=== PATIENT | male | born 1955 | race Caucasian/White ===

== ENCOUNTER 2024-02-16 15:02 | Emergency (ER) | payer MEDICARE, SELFPAY ==
[2024-02-16 15:10] VITALS: BP 159/80; PULSE 90; RESP 20; TEMP 36.2; O2SAT 99
[2024-02-16 15:14] LABS: Glucose Point of Care 280 mg/dl (65-105)
--- NOTE | 2024-02-16 15:19 | ED.EXTPRO ---
HPI - Extremity Problem General Chief complaint: Extremity Problem,Nontraumatic Stated complaint: L toes discoloration Time Seen by Provider: 02/16/24 15:13 History of Present Illness HPI Narrative: 68-year-old male history of diabetes, hypertension, dyslipidemia presents to the emergency room for evaluation of pain to his left great and 2nd toes. States pain has been present for 3 days. Denies injury or trauma. States recently it has been eating heavy amounts of meat seafood recently. Has not taken any medications to alleviate his symptoms. States his diabetes is poorly managed and has been experiencing neuropathy in his feet for several months. Related Data Home Medications Medication Instructions Recorded Confirmed aspirin 81 mg tablet,delayed 81 mg PO DAILY 10/23/22 11/26/23 release (Adult Low Dose Aspirin) lisinopril 10 mg tablet 10 mg PO DAILY 10/23/22 11/26/23 vzvdyoam-mmr-czfrk acid 0.4 1 tablet PO DAILY 10/23/22 11/26/23 mg-lycopene 300 mcg-lutein 250 mcg tablet (Complete Multivitamin Adult 50 Plus) omega-3 fatty acids-fish oil 360 1 cap PO DAILY 10/23/22 11/26/23 mg-1,200 mg capsule (Fish Oil) Allergies Allergy/AdvReac Type Severity Reaction Status Date / Time No Known Allergies Allergy Unknown Verified 02/16/24 15:11 Review of Systems Review of Systems: ROS unremarkable except for noted in HPI PMFSH Past Medical History Medical History Essential (primary) hypertension Generalized anxiety disorder Hyperlipidemia, unspecified Insomnia, unspecified Morbid (severe) obesity due to excess calories Nicotine dependence, cigarettes, uncomplicated Obstructive sleep apnea (adult) (pediatric) Personal history of colonic polyps Simple chronic bronchitis Type 2 diabetes mellitus with diabetic neuropathy Surgical History Surgical History History of drainage of abscess Perineal abscess drainage 2013, 2104, 2015 History of Mohs micrographic surgery for skin cancer 09/2016 Family History Family History Mother Family history of diabetes mellitus in first degree relative Father Family history of heart disease in male family member before age 55 Other Diabetes mellitus Social History Social History Smoking packs per day: 1 Smoking cigarettes per day: 20.0 Smoking status: Current every day smoker Tobacco type: cigarettes Second hand tobacco smoke exposure: No Smoking end date: 09/13/10 Alcohol intake: never Substance use: current Substance use type: does not use Do You Feel Safe in your Home?: Yes Lack of Transportation: No Lack of Food: Never True Current Housing: I Have Housing Concerned About Future Housing: No Difficulty Paying Gas/Electric Bills: No Difficulty Paying for Meds: No Currently Unemployed: YES Education: High School Diploma/GED Difficulty w/ Childcare or Family Care: No Living arrangements: with family Occupation/Education: retired Gender identity (if verbalized by the patient): Male Sexual Orientation (if Verbalized by the Patient): Straight or Heterosexual Spiritual care concerns: No Exam Narrative: GENERAL: Well-appearing, well-nourished, no physical limitations, and in no acute distress. HEAD: Normocephalic, atraumatic. EYES: Conjunctivae normal, PERRLA and EOMI. CHEST: Clear to auscultation. No respiratory distress. No wheezes rales or rhonchi. HEART: Regular rate and rhythm. No murmur heard. Normal peripheral pulses. EXTREMITIES: Left foot: Erythema and edema surrounding nail beds of great toe and 2nd toe. NO tenderness over the MTP or IP joints. No pain with dorsiflexion/plantarflexion SKIN: Warm, dry, no rash. No noted wounds NEURO: No focal deficits. Alert and oriented x3. MAEW. Ji
[2024-02-16 15:39] LABS: Basophils Absolute Auto 0.1 K/mm3 (0.0-0.1); Basophils Percent Auto 0.9 % (0.2-1.2); Eosinophils Absolute Auto 0.3 K/mm3 (0-0.3); Eosinophils Percent Auto 2.4 % (0-4.4); Hematocrit 49.6 % (42.0-52.0); Hemoglobin 16.3 g/dL (14.0-18.0); Immature Granulocyte Absolute 0.04 K/mm3 (0.00-0.031); Immature Granulocyte Percent A 0.3 % (0-0.5); Mean Corpuscular HGB Conc 32.9 g/dl (32-36); Mean Corpuscular Hemoglobin 29.8 pg (26-34); Mean Corpuscular Volume 90.7 fl (80-100); Mean Platelet Volume 11.4 fl (7.4-10.4); Monocytes Absolute Auto 1.2 K/mm3 (0.1-0.6); Monocytes Percent Auto 10.5 % (2.6-8.5); Neutrophils Absolute Auto 7.4 K/mm3 (1.3-6.7); Neutrophils Percent Auto 62.9 % (45.5-73.1); Platelet Count Result 249 k/mm3 (150-375); Red Blood Count 5.47 M/mm3 (4.6-6.20); Red Cell Distribution Width 12.5 % (11.5-14.5); White Blood Count 11.7 K/mm3 (4.5-10.0)
[2024-02-16 15:51] LABS: Alanine Aminotransferase 26 U/L (6-50); Albumin Level 4.3 g/dL (3.5-5.1); Alkaline Phosphatase 90 U/L (38-126); Anion Gap 8 mmol/L (4-12); Aspartate Amino Transferase 25 U/L (17-59); Bilirubin,Total 0.6 mg/dL (0.2-1.3); Blood Urea Nitrogen 18 mg/dL (9-20); Calcium 9.2 mg/dL (8.4-10.2); Carbon Dioxide 22 mmol/L (22-30); Chloride 104 mmol/L (98-107); Estimated CRCL calculation 98 ml/min; Estimated Glomerular Filt Rate > 60; Glucose 269 mg/dL (65-110); Potassium 4.3 mmol/L (3.4-5.0); Sodium 134 mmol/L (137-145)
== END 2024-02-16 16:06 | disposition home or self-care (01) ==
PROVIDERS: Emergency Provider Nurse Practitioner Family; PCP Family Medicine
DX: M10.9 Gout, unspecified (principal); E11.40 Type 2 diabetes mellitus with diabetic neuropathy, unspecified; I10 Essential (primary) hypertension; E78.5 Hyperlipidemia, unspecified; Z79.82 Long term (current) use of aspirin; E66.01 Morbid (severe) obesity due to excess calories; Z68.39 Body mass index [BMI] 39.0-39.9, adult; G47.33 Obstructive sleep apnea (adult) (pediatric); F17.210 Nicotine dependence, cigarettes, uncomplicated
CPT/HCPCS: 36415; 80053; 82948; 85025; 99283

== ENCOUNTER 2024-05-29 08:03 | Outpatient (CLI) | payer MEDICARE, SELFPAY ==
--- NOTE | ~2024-05-29 | MR_ITS ---
EXAMINATION: MR brain/brain stem wo con DATE: 05/29/2024 09:01 INDICATION: Amnesia TECHNIQUE: Magnetic resonance imaging (MRI) of the brain and brainstem was performed without intraven ous contrast. Sequences included sagittal and axial T1-weighted SE, axial diffusion-weighted FS SE, a xial 3D SWAN, axial T2*-weighted GRE, axial T2-weighted FLAIR, and axial T2-weighted FSE. Apparent di ffusion coefficient (ADC) maps were created. COMPARISON: None. FINDINGS: Single tiny focus of increased signal on the diffusion-weighted imaging with associated mild increase d T2 signal but without definitive decreased signal on the ADC map which would favor T2 shine through over restricted diffusion in the setting of infarct. No intracranial hemorrhage or abnormal intracra nial mass lesion. There are a few additional small scattered foci of nonspecific increased T2-weighte d signal intensity in the cerebral white matter, predominantly involving the deep and periventricular white matter. There are no intraparenchymal signal abnormalities seen on the other pulse sequences. The ventricles are symmetric and normal in size. There are no abnormal extra-axial fluid collections. Flow voids are seen in the cerebral arteries on the T2-weighted sequences consistent with their expe cted patency. Mild mucosal thickening the bilateral ethmoid sinuses. Changes of bilateral intraocular lens replacement. IMPRESSION: 1. Mild scattered nonspecific white matter T2 hyperintensity likely sequela of chronic small vessel i schemic disease. There is a tiny focus of increased signal on diffusion-weighted weighted imaging wit h corresponding with 1 of the T2 hyperintense lesions but without definitive restricted diffusion on the ADC map which would favor T2 shine through over acute infarct. Reviewed, dictated and finalized at location B. IMPRESSION: 1. Mild scattered nonspecific white matter T2 hyperintensity likely sequela of chronic small vessel ischemic disease. There is a tiny focus of increased signa l on diffusion-weighted weighted imaging with corresponding with 1 of the T2 hy perintense lesions but without definitive restricted diffusion on the ADC map w hich would favor T2 shine through over acute infarct.
== END 2024-05-29 08:04 | disposition home or self-care (01) ==
PROVIDERS: PCP Family Medicine; Visit Provider Family Medicine
DX: R94.02 Abnormal brain scan (principal); R41.3 Other amnesia
CPT/HCPCS: 70551

== ENCOUNTER 2024-09-04 08:22 | Outpatient (CLI) | payer MEDICARE, SELFPAY ==
--- NOTE | ~2024-09-04 | MR_ITS ---
EXAMINATION: MR lumbar spine wo con DATE: 09/04/2024 10:02 INDICATION: Other symptoms and signs involving musculoskeletal system. TECHNIQUE: Magnetic resonance imaging (MRI) of the lumbar spine was performed without intravenous con trast. Sequences included sagittal T2-weighted FSE, sagittal T2-weighted FS FSE, sagittal T1-weighted FSE, and axial T2-weighted FSE. COMPARISON: None FINDINGS: There is 3 degrees dextrocurvature of thoracolumbar spine. There is mild chronic anterior w edging of T11-L1 vertebral bodies. Intervertebral disc heights are normal. The distal spinal cord sig nal intensity is normal. The conus medullaris is at The following disc levels are specifically discus sed: L1-L2: There is a central protrusion. There is mild bilateral facet joint osteoarthritis. There is no neural foraminal stenosis. There is mild central canal stenosis. L2-L3: There is a left foraminal protrusion. There is mild bilateral facet joint osteoarthritis. Ther e is mild left neural foraminal stenosis. There is no central canal stenosis. L3-L4: The disc is bulging. There is severe right and moderate left facet joint osteoarthritis. There is mild bilateral neural foraminal stenosis. There is mild central canal stenosis. L4-L5: The disc is bulging. There is severe bilateral facet joint osteoarthritis. There is mild bilat eral neural foraminal stenosis. There is mild central canal stenosis. L5-S1: There is a central protrusion with annular fissure. There is moderate bilateral facet joint os teoarthritis. There is mild bilateral neural foraminal stenosis. There is mild central canal stenosis . IMPRESSION: 1. Mild lumbar spondylosis. Reviewed, dictated and finalized at location A. TRICIAN CRANE MAINTENANCE IMPRESSION: 1. Mild lumbar spondylosis.
--- NOTE | ~2024-09-04 | MR_ITS ---
EXAMINATION: MR cervical spine wo con DATE: 09/04/2024 10:02 INDICATION: Other symptoms and signs involving the musculoskeletal system. TECHNIQUE: Magnetic resonance imaging (MRI) of the cervical spine was performed without intravenous c ontrast. COMPARISON: None FINDINGS: There is kyphosis of cervical spine. Vertebral body heights are normal. There is mildly dec reased disc height at C4-C5, moderately decreased disc height at C5-C6, and mildly decreased disc hei ght at C6-C7. The spinal cord signal intensity is normal. The following disc levels are specifically discussed: C2-C3: The disc does not extend beyond the endplate margin. There is no uncovertebral joint osteoarth ritis. There is severe right and mild left facet joint osteoarthritis. There is no neural foraminal s tenosis. There is no central canal stenosis. C3-C4: There is a central extrusion. There is mild bilateral uncovertebral joint osteoarthritis. Ther e is moderate right and severe left facet joint osteoarthritis. There is mild bilateral neural forami nal stenosis. There is mild central canal stenosis with ventral indentation of the spinal cord. C4-C5: There is a central extrusion. There is mild bilateral uncovertebral joint osteoarthritis. Ther e is mild bilateral facet joint osteoarthritis. There is mild bilateral neural foraminal stenosis. Th ere is mild central canal stenosis with ventral indentation of the spinal cord. C5-C6: The disc is bulging. There is moderate right and severe left uncovertebral joint osteoarthriti s. There is moderate bilateral facet joint osteoarthritis. There is mild right and moderate left neur al foraminal stenosis. There is mild central canal stenosis with ventral indentation of the spinal co rd. C6-C7: The disc is bulging with superimposed left central extrusion. There is moderate right and payal re left uncovertebral joint osteoarthritis. There is mild right and moderate left facet joint osteoar thritis. There is mild right and moderate left neural foraminal stenosis. There is mild central canal stenosis. C7-T1: There is a central protrusion. There is mild bilateral uncovertebral joint osteoarthritis. The re is severe bilateral facet joint osteoarthritis. There is mild bilateral neural foraminal stenosis. There is mild central canal stenosis. IMPRESSION: 1. Moderate cervical spondylosis. Reviewed, dictated and finalized at location A. M MASTER
--- NOTE | ~2024-09-04 | MR_ITS ---
EXAMINATION: MR thoracic spine wo con DATE: 09/04/2024 10:02 INDICATION: Other symptoms and signs involving the musculoskeletal system. TECHNIQUE: Magnetic resonance imaging (MRI) of the thoracic spine was performed without intravenous c ontrast. COMPARISON: None FINDINGS: There is 10 degrees dextroscoliosis of thoracic spine. There are Schmorl's nodes at multipl e levels. There is mild chronic anterior wedging of T7-L1 vertebral bodies. There is mildly decreased disc height at T5-T6 and T6-T7. At T2-T3, there is a central protrusion with mild central canal sten osis. At T3-T4, there is a central protrusion with mild central canal stenosis. At T4-T5, there is a left central extrusion with mild central canal stenosis. At T5-T6, there is a left central extrusion with mild central canal stenosis. At T6-T7, there is a left central extrusion with mild central canal stenosis. At T7-T8, there is a left central extrusion with mild central canal stenosis. At T8-T9, th ere is a left central protrusion with mild central canal stenosis. At T11-T12, there is a right centr al protrusion with mild central canal stenosis. There is multilevel mild facet joint osteoarthritis. On the right left, there is mild neural foraminal stenosis at T3-T4, T4-T5, T5-T6, T6-T7, and T10-T11 . The spinal cord signal intensity is normal. IMPRESSION: 1. Mild thoracic spondylosis. 2. Thoracic dextroscoliosis. Reviewed, dictated and finalized at location A. OM GARMENT DESIGNER
--- OUTSIDE RECORDS SUMMARY | 2024-09-11 16:43 | XMS_ITS | Patient Health Record ---
Author Organization [facility] [employer] Address [address] [facility] [address] [facility] [address] [place] [address] Care Team Providers Care Windlace Machine Operator Name Role Phone TaranWyatt prettyjay Unavailable [phone] Migration, Provider Unavailable Unavailable Reason For Referral No Information Social History Sex Assigned At : Social History Observation Description Sex Assigned At Male Encounters Encounter Location Date Provider Diagnosis [facility] [employer] [facility] [address] [address] 05/11/2024 Juan Chirinos [facility] [address] [address] 01/29/2024 Provider Migration [facility] [address] [address] 01/30/2024 Provider Migration Plan Of Treatment No Information Insurance Providers Payer Name Payer Address Payer Phone Subscriber Number Group Number Insured Name Patient Relationship to Insured Coverage Start Date Coverage End Date [facility] [address] [facility] [place] [address] [id number] MARVA HAIR Self - patient is the insured
--- OUTSIDE RECORDS SUMMARY | 2024-09-11 16:43 | XMS_ITS | Continuity of Care Document ---
Author Organization [facility] Address [address] [place] [address] [address] [place] [address] Phone Care Team Providers Care Consumer Loan Manager Name Role Phone Wilson Pierce Unavailable Unavailable Procedures Procedure Date Eye Exam & Treatment Refraction Eye Exam, New Patient Corneal Pachymetry Refraction Advance Directives Directive Yes / No Effective Date File Name No Information Encounters Encounter Description Practice Location Reason(s) For Visit Diagnoses Date Provider Providers Copied on Encounter formerly [facility], [address] [place] [address] [address], [place], [place], [id number], tel:[phone] [facility] No Information 9 Kari Rachel. [address] , [facility] [address], [place], [place], [facility], . tel:[phone] formerly [facility], [address] [place] [address] [address], [place], [place], [id number], tel:[phone] [facility] No Information 8 Kari Rachel. [address] , [address], [place], [address], [place]. tel:[phone] Referring Provider: Hernan Arshad MD, [address] [facility] [place], [address]. tel:[phone] Family History Family Member Type Diagnosis Age At Onset No Information Payers Payer name Insurance type Covered libertarian ID Authoriza tion(s) No Information Social History Type Description Quantity Date Captured Comments Sex Male Smoking Status No Information Chief Complaint And Reason For Visit No Information Reason For Referral Reason For Referral No Information History Of Present Illness Encounter Date Complaint History Of Prese nt Illness No Information Functional Status Date Functional Assessmen t No Information Instructions Date Instruction Additional Infor mation No Information Assessments Type Assessment Date No Information Patient Care Teams Name Effective Dates (start - stop) Status Members No Information
--- OUTSIDE RECORDS SUMMARY | 2024-09-11 16:43 | XMS_ITS ---
Author Organization [facility] [employer] [facility] Address [address] [place] [address] Care Team Providers Care Dairy Scientist Name Role Phone Juan Chirinos Unavailable [phone] Migration, Provider Unavailable Unavailable REASON FOR VISIT EMR-Usman Social History Sex Assigned At : Social History Observation Description Sex Assigned At Male Encounters Encounter Location Date Provider Diagnosis [facility] [employer] [facility] [address] [facility] [address] [place] [address] 01/30/2024 Provider Migration Plan Of Treatment No Information Progress Notes * CHRISTA HAIROB:1955 (68 yo M)Acc No.[id number]:01/30/2024 Patient:?OKSANAERNESTOMARVA SABA :1955???Age:68 Y???Sex:Male Phone: Address:[address] [facility] [address] Subjective: * Chief Complaints: * ???EMR-Usman * Medical History:? * Surgical History:? * Hospitalization/Major Diagno stic Procedure:? * Medications:? Objective: * Vitals:? * Physical Examination:? Assessment: Plan: * Treatment: * Procedure Codes:? * true * Date:? Generated for Printi ng/Faxing/eTransmitting on:?09/11/2024 04:42 PM RESUME WRITER
--- OUTSIDE RECORDS SUMMARY | 2024-09-11 16:43 | XMS_ITS ---
Author Organization [facility] Address [address] [facility] [address] [place] [address] Care Team Providers Care Lead Project Engineer Name Role Phone TaranWyatt prettyjay Unavailable [phone] Social History Sex Assigned At : Social History Observation Description Sex Assigned At Male Encounters Encounter Location Date Provider Diagnosis [facility] [address] [facility] [address] [place] [address] 05/11/2024 Juan Addison Plan Of Treatment No Information Progress Notes * LAXMI STANFORDJUANOB:1955 (68 yo M)Acc No.[id number]:05/11/2024 Patient:?OKSANAERNESTOSTANFORD SABANE Provider:?JUAN ADDISON MD :1955???Age:68 Y???Sex:Male Kareem e:05/11/2024 Phone: Address:[address] [facility] Subjective: * Chief Complaints: * ??? * Medical History:? * Surgical History:? * Hospitalization/Major Diagno stic Procedure:? * Medications:? Objective: * Vitals:? Assessment: Plan: * Treatment: * Procedure Codes:? * Billing Information: * Visit Code:? * Procedure Codes:? * Sign off status: Completed true * Provider:?JUAN ADDISON MD Date:?05/11 Generated for Mylenei ng/Fachrisg/eTransmitting on:?09/11/2024 04:42 PM EDITOR IN CHIEF NEWSPAPER
--- OUTSIDE RECORDS SUMMARY | 2024-09-11 16:43 | XMS_ITS ---
Author Organization [facility] [employer] [facility] Address [address] [place] [address] Care Team Providers Care Cover Stitch Machine Operator Name Role Phone Juan Chirinos Unavailable [phone] Migration, Provider Unavailable Unavailable REASON FOR VISIT EMR-Usman Social History Sex Assigned At : Social History Observation Description Sex Assigned At Male Encounters Encounter Location Date Provider Diagnosis [facility] [employer] [facility] [address] [facility] [address] [place] [address] 01/29/2024 Provider Migration Plan Of Treatment No Information Progress Notes * CHRISTA HAIROB:1955 (68 yo M)Acc No.[id number]:01/29/2024 Patient:?OKSANAERNESTOMARVA SABA :1955???Age:68 Y???Sex:Male Phone: Address:[address] [facility] [address] Subjective: * Chief Complaints: * ???EMR-Usman * Medical History:? * Surgical History:? * Hospitalization/Major Diagno stic Procedure:? * Medications:? Objective: * Vitals:? * Physical Examination:? Assessment: Plan: * Treatment: * Procedure Codes:? * true * Date:? Generated for Printi ng/Faxing/eTransmitting on:?09/11/2024 04:42 PM REPAIR OPERATOR
== END 2024-09-04 08:23 | disposition home or self-care (01) ==
LOC: ANHIMG 08:26
PROVIDERS: PCP Family Medicine; Visit Provider Psychiatry & Neurology Neurology
DX: R29.898 Other symptoms and signs involving the musculoskeletal system (principal); R32 Unspecified urinary incontinence; R27.0 Ataxia, unspecified; E11.40 Type 2 diabetes mellitus with diabetic neuropathy, unspecified
CPT/HCPCS: 72141; 72146; 72148

== ENCOUNTER 2024-11-30 09:21 | Outpatient (CLI) | payer MEDICARE, SELFPAY ==
--- OUTSIDE RECORDS SUMMARY | 2024-11-30 09:47 | XMS_ITS ---
Author Organization [facility] [employer] [facility] Address [address] [address] Care Team Providers Care Internal Grinder Name Role Phone Taran, Juan Unavailable [phone] Social History Sex Assigned At : Social History Observation Description Sex Assigned At Male Encounters Encounter Location Date Provider Diagnosis [facility] [employer] [facility] [address] [facility] [address] [place] [address] 05/11/2024 Juan Addison Plan Of Treatment No Information Progress Notes * CHRISTA HAIROB:1955 (68 yo M)Acc No.[id number]:05/11/2024 Patient: MARVA LARIOS Provider: Adeola ADDISON MD :1955 A ge:68 Y S ex:Male Date:05/11/2024 Phone: Address:[address] [facility] Subjective: * Chief Complaints: * * Medical History: * Surgical History: * Hospitalization/Major Diagno stic Procedure: * Medications: Objective: * Vitals: Assessment: Plan: * Treatment: * Procedure Codes: * Billing Information: * Visit Code: * Procedure Codes: * Sign off status: Completed true * Provider: Adeola ADDISON MD Date: 05/11/2024 Generated for Tina moreau/Radha/eTosminsmitting on: 11/30/2024 09:46 AM CDT
--- OUTSIDE RECORDS SUMMARY | 2024-11-30 09:47 | XMS_ITS | Patient Health Record ---
Author Organization [facility] [employer] [facility] Address [address] [facility] [address] [facility] [address] [place] [address] Care Team Providers Care News Producer Name Role Phone TaranWyatt prettyjay Unavailable [phone] Migration, Provider Unavailable Unavailable Reason For Referral No Information Social History Sex Assigned At : Social History Observation Description Sex Assigned At Male Encounters Encounter Location Date Provider Diagnosis [facility] [employer] [facility] [address] [address] 05/11/2024 Juan Chirinos [facility] [address] [address] 01/29/2024 Provider Migration [facility] [employer] [facility] [address] [address] 01/30/2024 Provider Migration Plan Of Treatment No Information Insurance Providers Payer Name Payer Address Payer Phone Subscriber Number Group Number Insured Name Patient Relationship to Insured Coverage Start Date Coverage End Date [facility] [address] [facility] [place] [address] [id number] MARVA HAIR Self - patient is the insured
--- OUTSIDE RECORDS SUMMARY | 2024-11-30 09:47 | XMS_ITS | Continuity of Care Document ---
Author Organization [facility] Address [address] [place] [address] [address] [place] [address] Phone Care Team Providers Care Platform Engineer Name Role Phone Wilson Pierce Unavailable Unavailable Procedures Procedure Date Eye Exam & Treatment Refraction Eye Exam, New Patient Corneal Pachymetry Refraction Advance Directives Directive Yes / No Effective Date File Name No Information Encounters Encounter Description Practice Location Reason(s) For Visit Diagnoses Date Provider Providers Copied on Encounter [facility], [address] [place] [address] [address], [place], [place], [id number], tel:[phone] [facility] No Information 9 Kari Rachel. [address] , [facility] [address], [place], [place], [facility], . tel:[phone] [facility], [address] [place] [address] [address], [place], [place], [id number], tel:[phone] [facility] No Information 8 Kari Rachel. [address] , [address], [place], [address], [place]. tel:[phone] Referring Provider: Hernan Arshad MD, [address] [facility] [place], [address]. tel:[phone] Family History Family Member Type Diagnosis Age At Onset No Information Payers Payer name Insurance type Covered democrat ID Authoriza tion(s) No Information Social History [...]
--- OUTSIDE RECORDS SUMMARY | 2024-11-30 09:47 | XMS_ITS ---
Author Organization [facility] [employer] Address [address] [facility] [address] [place] [address] Care Team Providers Care Cutter Hand Name Role Phone Juan Chirinos Unavailable [phone] Migration, Provider Unavailable Unavailable REASON FOR VISIT [facility] [place] Social History Sex Assigned At : Social History Observation Description Sex Assigned At Male Encounters Encounter Location Date Provider Diagnosis [facility] [address] [facility] [address] [place] [address] 01/30/2024 Provider Migration Plan Of Treatment No Information Progress Notes * CHRISTA HAIROB:1955 (68 yo M)Acc No.[id number]:01/30/2024 Patient: MARVA LARIOS :1955 A ge:68 Y S ex:Male Phone: Address:[address] [place], [address] Subjective: * Chief Complaints: * E MR-Usman * Medical History: * Surgical History: * Hospitalization/Major Diagno stic Procedure: * Medications: Objective: * Vitals: * Physical Examination: Assessment: Plan: * Treatment: * Procedure Codes: * true * Date: Generated for Printi ng/Faxing/eTransmitting on: 0 11/30/2024 09:47 AM CDT
--- OUTSIDE RECORDS SUMMARY | 2024-11-30 09:47 | XMS_ITS ---
Author Organization [facility] [employer] Address [address] [facility] [address] [place] [address] Care Team Providers Care Rod Hanger Name Role Phone Juan Chirinos Unavailable [phone] Migration, Provider Unavailable Unavailable REASON FOR VISIT [facility] [place] Social History Sex Assigned At : Social History Observation Description Sex Assigned At Male Encounters Encounter Location Date Provider Diagnosis [facility] [email or web address] [facility] [address] [facility] [address] [place] [address] 01/29/2024 Provider Migration Plan Of Treatment No Information Progress Notes * CHRISTA HAIROB:1955 (68 yo M)Acc No.[id number]:01/29/2024 Patient: MARVA LARIOS :1955 A ge:68 Y S ex:Male Phone: Address:[address] [place], [address] Subjective: * Chief Complaints: * E MR-Usman * Medical History: * Surgical History: * Hospitalization/Major Diagno stic Procedure: * Medications: Objective: * Vitals: * Physical Examination: Assessment: Plan: * Treatment: * Procedure Codes: * true * Date: Generated for Printi ng/Faxing/eTransmitting on: 0 11/30/2024 09:46 AM CDT
--- NOTE | 2024-11-30 12:00 | NEURO_ITS ---
Clinical note: The patient is 69 years old with history of paresthesias in both lower limbs. Patient has history of diabetes mellitus. On a brief examination no focal muscle wasting or fasciculations were noted in lower limbs. The results of the EMG nerve can study are given below. Summary of findings: 1. Left and right peroneal motor distal latencies were normal however amplitudes were significantly decreased on the right and a mildly decreased on the left side. Conduction velocities were mildly decreased on both sides. There is no focal slowing noted across the fibular head. 2. Right tibial motor was absent. Left tibial motor distal latency is mildly prolonged wears amplitude was significantly decreased and conduction velocities were moderately decreased. 3. Left and right sural sensory were absent. 4. Right H-reflex was prolonged and amplitude is markedly decreased with left H-reflex was absent. 5. EMG nerve study were performed in both lower limbs which show mild denervation changes at L4-5 level on left and L4 level on the right side. Peripheral muscles show mild changes in the right gastrocnemius. Impression: EMG nerve can study is supportive diagnosis of 1. Moderate , length-dependent, axonal, sensory m polyneuropathy such as may be seen with diabetes mellitus . 2. Evidence of bilateral L5-S1 radiculopathy. denervation changes were seen in paraspinal muscles as shown above. Radiographic correlation are recommended Radha Hsieh MD, FAAN, FAANEM Neurologist Nerve Conduction Studies Motor Nerve Results ? Latency Amplitude F-Lat Segment Distance CV Comment Site (ms) (mV) (ms) (cm) (m/s) Left Fibular (EDB) Motor Ankle 4.4 2.2 Bel Fib Head 15.2 1.49 Bel Fib Head-Ankle 330 31 Pop Fossa 17.4 1.25 Pop Fossa-Bel Fib Head 80 36 Right Fibular (EDB) Motor Ankle 5.4 0.85 Bel Fib Head 14.2 0.65 Bel Fib Head-Ankle 290 33 Pop Fossa 16.7 0.77 Pop Fossa-Bel Fib Head 80 32 Left Tibial (AHB) Motor Ankle 7.1 0.69 Knee 22.4 0.59 Knee-Ankle 410 27 Right Tibial (AHB) Motor Ankle NR NR Knee NR NR Knee-Ankle 410 NR Sensory Nerve Results ? Latency (Peak) Amplitude (P-P) Segment Distance CV Comment Site (ms) (?V) (cm) (m/s) Left Sural Sensory Calf-Lat Mall NR NR Calf-Lat Mall 120 NR Right Sural Sensory Calf-Lat Mall NR NR Calf-Lat Mall 120 NR H-Reflex Results ? M-Lat H Lat H Peak-Peak Amp M Peak-Peak Amp H-M Lat Site (ms) (ms) mV mV (ms) Left Tibial H-Reflex Pop Fossa - NR - - NR Right Tibial H-Reflex Pop Fossa 10.2 41.1 0.22 3.3 30.9 Electromyography ?Side Muscle Nerve Ins Act Fibs Psw Amp Dur Recrt Comment Right BicepsFemS Sciatic Nml Nml Nml Nml Nml Nml Right Semimembranosus Sciatic Nml Nml Nml Nml Nml Nml Right AntTibialis Dp Br Fibular Nml Nml Nml Nml Nml Nml Right Gastroc Tibial Nml Nml Nml Incr >12ms +1 Right VastusMed Femoral Nml Nml Nml Nml Nml Nml Right GluteusMax InfGluteal Nml Nml Nml Nml Nml Nml Left BicepsFemS Sciatic Nml Nml Nml Nml Nml Nml Left Semimembranosus Sciatic Nml Nml 1+ Nml Nml Nml Left AntTibialis Dp Br Fibular Nml Nml Nml Nml Nml Nml UTC Left Gastroc Tibial Nml Nml Nml Nml Nml Nml UTC Left VastusMed Femoral Nml Nml Nml Nml Nml Nml Left RectFemoris Femoral Nml Nml Nml Nml Nml Nml Left L4 Parasp Rami Nml Nml 2+ Nml Nml Nml CRD Right L4 Parasp Rami Nml Nml 1+ Nml Nml Nml Left L5 Parasp Rami Nml Nml 2+ Nml Nml Nml Right L5 Parasp Rami Nml Nml Nml Nml Nml Nml MTDD
== END 2024-11-30 09:22 | disposition home or self-care (01) ==
LOC: ANHNEURO 09:23
PROVIDERS: PCP Family Medicine; Visit Provider Psychiatry & Neurology Neurology
DX: G62.89 Other specified polyneuropathies (principal); E11.9 Type 2 diabetes mellitus without complications; R29.898 Other symptoms and signs involving the musculoskeletal system; R32 Unspecified urinary incontinence; R27.0 Ataxia, unspecified; E11.40 Type 2 diabetes mellitus with diabetic neuropathy, unspecified
CPT/HCPCS: 95886; 95909

== ENCOUNTER 2025-06-01 00:56 | Day surgery (SDC) | payer MEDICARE, SELFPAY ==
[2025-06-01 09:26] VITALS: BP 123/62; PULSE 91; RESP 18; TEMP 36.1; O2SAT 97
[2025-06-01] MEDS: LACTATED RINGERS 1,000 ML 150 ML IV CONT (09:36)
--- NOTE | 2025-06-01 09:37 | WPDANESEPPF ---
Anes - Initial Pre Proc Eval Procedure: Operation Date: 06/01/25 11:00 Proposed Procedures p Screening Colonoscopy - Brad López MD Date/Time: 06/01/25 09:37 Surgeon: Brad López MD Pre Op Diagnosis: Personal history of colon polyps, unspecified Patient Data Age: 69 Gender: M Height: 1.75 m Weight: 123.9 kg Last Vital Signs Temp 36.1 C L 06/01/25 09:26 Pulse 91 06/01/25 09:26 Resp 18 06/01/25 09:26 BP 123/62 06/01/25 09:26 Pulse Ox 97 06/01/25 09:26 O2 Del Method Room Air 06/01/25 09:26 Allergies Allergy/AdvReac Type Severity Reaction Status Date / Time No Known Allergies Allergy Unknown Verified 06/01/25 09:23 Home Medications ?Medication ?Instructions ?Recorded ?Confirmed ?Type aspirin 81 mg tablet,delayed 81 mg PO DAILY 10/23/22 06/01/25 History release (Adult Low Dose Aspirin) omega-3 fatty acids-fish oil 360 1 cap PO DAILY 10/23/22 05/21/25 History mg-1,200 mg capsule (Fish Oil) insulin NPH isoph U-100 human 100 20 unit (0.2 mL) subcut BID #10 mL 03/12/23 06/01/25 Rx unit/mL subcutaneous suspension (Novolin N NPH U-100 Insulin isophane) albuterol sulfate 90 mcg/actuation 1 puff inhalation Q4H PRN 12/30/23 05/21/25 Rx aerosol inhaler (ProAir HFA) shortness of breath or wheezing #6.7 grams metformin 1,000 mg tablet 1,000 mg PO BID #180 tabs 04/06/24 06/01/25 Rx lisinopril 10 mg tablet 10 mg PO DAILY #90 tabs 08/25/24 06/01/25 Rx glimepiride 2 mg tablet 2 mg PO QAM #90 tabs 12/18/24 06/01/25 Rx atorvastatin 40 mg tablet 40 mg PO QHS #90 tabs 01/30/25 06/01/25 Rx memantine 5 mg-10 mg tablets in a See Rx Instructions PO PER PKG DIR 01/30/25 05/21/25 Rx dose pack (Namenda Titration Jose D) #49 ea blood-glucose sensor (Dexcom G7 #9 ea 02/12/25 02/23/25 Rx Sensor device) aripiprazole 2 mg tablet 2 mg PO DAILY 02/23/25 05/21/25 History vitamins A,C,Q-orob-ybyeda 4,296 1 cap PO QAM AND QPM 02/23/25 06/01/25 History mcg-226 mg-90 mg capsule (PreserVision AREDS) memantine 10 mg tablet 10 mg PO BID #180 tabs 03/15/25 06/01/25 Rx gabapentin 300 mg capsule 300 mg PO BID #60 caps 05/11/25 06/01/25 Rx escitalopram oxalate 20 mg tablet 40 mg PO DAILY 05/21/25 06/01/25 History krill 1,000 mg-omega-3 170 mg-dha 2 cap PO DAILY 05/21/25 06/01/25 History 50 mg-epa 80 dq-mxibir-xrcio capsule magnesium 250 mg tablet 500 mg PO DAILY 05/21/25 06/01/25 History Patient hx anesthesia problems: none Family hx anesthesia problems: none Results Review: All pre-operative results and documents have been reviewed as part of the pre-operative evaluation. [facility] Past Medical History Medical History Neuropathy Microalbuminuria Type 2 diabetes mellitus with other diabetic kidney complication Weakness of both legs Urinary incontinence Ataxia Depression MCI (mild cognitive impairment) Anxiety Memory problem Type 2 diabetes mellitus with diabetic neuropathy Insomnia, unspecified Simple chronic bronchitis Generalized anxiety disorder Morbid (severe) obesity due to excess calories Nicotine dependence, cigarettes, uncomplicated Personal history of colonic polyps Obstructive sleep apnea (adult) (pediatric) Hyperlipidemia, unspecified Essential (primary) hypertension Surgical History Surgical History History of Mohs micrographic surgery for skin cancer 09/2016 History of drainage of abscess Perineal abscess drainage 2015 Family History Family History Mother Family history of diabetes mellitus in first degree relative Father Family history of heart disease in male family member before age 55 Other Diabetes mellitus Social History Social History Smoking packs per day: 1 Smoking cigarettes per day: 20.0 Smoking status: Former smoker Tobacco type: cigarettes Second hand tobacco smoke exposure: No Smoking end date: 09/13/10 Alcohol intake: never Substance use: current Substance use type: does not use Do You Feel Safe in your Home?: Yes Lack of Transportation: No Lack of Food: Never True Current Housing: I Have Housing Concerned About Future Housing: No Difficulty Paying Gas/Electric Bills: No Difficulty Paying for Meds: No Currently Unemployed: YES Education: High School Diploma/GED Difficulty w/ Childcare or Family Care: No Living arrangements: with family Occupation/Education: retired Gender identity (if verbalized by the patient): Male Sexual Orientation (if Verbalized by the Patient): Straight or Heterosexual Spiritual care concerns: No Anes - Eval Final PreProcedure Day of Procedure 06/01/25 09:37 Patient weight: morbidly obese Heart: regular rate and rhythm Lungs: clear to auscultation Airway: Mallampati scale class II Neurological: alert and oriented Last oral intake: >/= 8 hours ASA classification: III Emergent: no Anesthetic plan: proceed Anesthesia type and monitoring: general GIVS and standard monitoring Results Review: All pre-operative results and documents have been reviewed as part of the pre-operative evaluation. Informed Consent: The patient's anesthetic plan and its attendant risks and benefits were discussed with the patient/family/POA. Questions were solicited and answers provided to the satisfaction of the patient/family/POA.
--- NOTE | 2025-06-01 10:19 | PM.HPGS ---
History of Present Illness History of Present Illness Consent: Risks, benefits, and alternatives have been discussed and questions answered. Patient agrees to proceed with procedure. Chief complaint: Personal history of colon polyps, unspecified Narrative: Ulises Carter is a 69 year old male with colon polyp 5 years ago, also h/o diarrhea Review of Systems Review of Systems: All systems reviewed & are unremarkable except as noted in HPI and below PMFSH Past Medical History Medical History Neuropathy Microalbuminuria Type 2 diabetes mellitus with other diabetic kidney complication Weakness of both legs Urinary incontinence Ataxia Depression MCI (mild cognitive impairment) Anxiety Memory problem Type 2 diabetes mellitus with diabetic neuropathy Insomnia, unspecified Simple chronic bronchitis Generalized anxiety disorder Morbid (severe) obesity due to excess calories Nicotine dependence, cigarettes, uncomplicated Personal history of colonic polyps Obstructive sleep apnea (adult) (pediatric) Hyperlipidemia, unspecified Essential (primary) hypertension Surgical History Surgical History History of Mohs micrographic surgery for skin cancer 09/2016 History of drainage of abscess Perineal abscess drainage 2013, 2015 Family History Family History Mother Family history of diabetes mellitus in first degree relative Father Family history of heart disease in male family member before age 55 Other Diabetes mellitus Social History Social History Smoking packs per day: 1 Smoking cigarettes per day: 20.0 Smoking status: Former smoker Tobacco type: cigarettes Second hand tobacco smoke exposure: No Smoking end date: 09/13/10 Alcohol intake: never Substance use: current Substance use type: does not use Do You Feel Safe in your Home?: Yes Lack of Transportation: No Lack of Food: Never True Current Housing: I Have Housing Concerned About Future Housing: No Difficulty Paying Gas/Electric Bills: No Difficulty Paying for Meds: No Currently Unemployed: YES Education: High School Diploma/GED Difficulty w/ Childcare or Family Care: No Living arrangements: with family Occupation/Education: retired Gender identity (if verbalized by the patient): Male Sexual Orientation (if Verbalized by the Patient): Straight or Heterosexual Spiritual care concerns: No Meds Home Medications and Allergies Home Medications ?Medication ?Instructions ?Recorded ?Confirmed ?Type aspirin 81 mg tablet,delayed 81 mg PO DAILY 10/23/22 06/01/25 History release (Adult Low Dose Aspirin) omega-3 fatty acids-fish oil 360 1 cap PO DAILY 10/23/22 05/21/25 History mg-1,200 mg capsule (Fish Oil) insulin NPH isoph U-100 human 100 20 unit (0.2 mL) subcut BID #10 mL 03/12/23 06/01/25 Rx unit/mL subcutaneous suspension (Novolin N NPH U-100 Insulin isophane) albuterol sulfate 90 mcg/actuation 1 puff inhalation Q4H PRN 12/30/23 05/21/25 Rx aerosol inhaler (ProAir HFA) shortness of breath or wheezing #6.7 grams metformin 1,000 mg tablet 1,000 mg PO BID #180 tabs 04/06/24 06/01/25 Rx lisinopril 10 mg tablet 10 mg PO DAILY #90 tabs 08/25/24 06/01/25 Rx glimepiride 2 mg tablet 2 mg PO QAM #90 tabs 12/18/24 06/01/25 Rx atorvastatin 40 mg tablet 40 mg PO QHS #90 tabs 01/30/25 06/01/25 Rx memantine 5 mg-10 mg tablets in a See Rx Instructions PO PER PKG DIR 01/30/25 05/21/25 Rx dose pack (Namenda Titration Jose D) #49 ea blood-glucose sensor (Dexcom G7 #9 ea 02/12/25 02/23/25 Rx Sensor device) aripiprazole 2 mg tablet 2 mg PO DAILY 02/23/25 06/01/25 History vitamins A,C,H-qlit-llhpzh 4,296 1 cap PO QAM AND QPM 02/23/25 06/01/25 History mcg-226 mg-90 mg capsule (PreserVision AREDS) memantine 10 mg tablet 10 mg PO BID #180 tabs 03/15/25 06/01/25 Rx gabapentin 300 mg capsule 300 mg PO BID #60 caps 05/11/25 06/01/25 Rx escitalopram oxalate 20 mg tablet 40 mg PO DAILY 05/21/25 06/01/25 History krill 1,000 mg-omega-3 170 mg-dha 2 cap PO DAILY 05/21/25 06/01/25 History 50 mg-epa 80 mp-pyynzg-flobz capsule magnesium 250 mg tablet 500 mg PO DAILY 05/21/25 06/01/25 History Allergies Allergy/AdvReac Type Severity Reaction Status Date / Time No Known Allergies Allergy Unknown Verified 06/01/25 09:23 Vital Signs Vital Signs - 24 hr 06/01/25 09:26 Temperature 97 F L Pulse Rate 91 Respiratory Rate 18 Blood Pressure 123/62 Pulse Oximetry 97 Oxygen Delivery Room Air Exam Const: General: comfortable and no acute distress HENMT: Face/Nose/Sinus: Normal nares present Eyes: General: appearance normal, both eyes and all related structures Neck: Neck: no JVD Resp: Auscultation: clear to auscultation bilaterally Cardio: Rate: regular rate Rhythm: regular rhythm GI: Inspection: non-distended GI Palp: Yes Soft to palpation Skin: General skin exam: normal color Neuro: Speech: normal speech Extrem: General: normal to inspection Psych: Mental Status: mental status grossly normal Assessment and Plan Assessment and plan (1) Personal history of colonic polyps: Code(s): Z86.010 - Personal history of colon polyps Status: Acute Assessment and Plan: colonoscopy
--- NOTE | 2025-06-01 10:39 | S_PTH ---
PATIENT: Ulises Carter LOC: [facility]#:[id number] AGE/SX: 69/M ROOM: RE06/01/[address]: Brad López MD : 1955 BED: DIS: 06/01/2025 SPEC #: [id number] RECD: 06/01/25 11:30 STATUS: GREY JOSEPH #: [id number] MOUNIKA: 06/01/25 10:[address]: Brad López DEPT: [facility] Surgical RECD BY: Cesilia Tenorio ENTERED: 06/01/25 11:30 SP TYPE: Surgical OTHR DR: Shayne Douglas MD Tissues: A - Colon Polypectomy B - Colon Biopsy C - Colon Polypectomy Procedures: Hematoxylin and Eosin Stain Gross and Microscopic Level 4
[2025-06-01 10:48] VITALS: BP 126/75; PULSE 78; RESP 16; O2SAT 97
[2025-06-01 10:58] VITALS: BP 120/81; PULSE 77; RESP 18; O2SAT 98
[2025-06-01 11:08] VITALS: BP 131/71; PULSE 79; RESP 20; O2SAT 99
== END 2025-06-01 11:24 | disposition home or self-care (01) ==
PROVIDERS: PCP Family Medicine; Referring Provider Family Medicine; Visit Provider Internal Medicine Gastroenterology
PROC: 0DJD8ZZ Inspection of Lower Intestinal Tract, Via Natural or Artificial Opening Endoscopic (ICD-10-PCS; CPT 45378; principal; 2025-06-01 11:00)
DX: K52.832 Lymphocytic colitis (principal); D12.2 Benign neoplasm of ascending colon; D12.3 Benign neoplasm of transverse colon; Z87.891 Personal history of nicotine dependence; E66.01 Morbid (severe) obesity due to excess calories; Z68.41 Body mass index [BMI] 40.0-44.9, adult
CPT/HCPCS: 45385; 45380; 82948; 88305; J2704; J7120